=== PATIENT | female | born 1960 | race Caucasian/White ===

== ENCOUNTER 2020-09-11 16:26 | Emergency (ER) | payer BC, SELFPAY ==
[2020-09-11 16:39] VITALS: BP 139/81; PULSE 82; RESP 18; TEMP 37.4; O2SAT 98
--- NOTE | 2020-09-11 16:39 | ED.EAR ---
HPI - Ear Problem General Chief complaint: Ear Stated complaint: ear infection Time Seen by Provider: 09/11/20 16:39 Source: patient and RN notes reviewed History of Present Illness HPI Narrative: Patient is a 60-year-old female that presents the urgent care with complaints of bilateral ear pain and itchiness due to a yeast infections in the ears. Patient states that this has been an ongoing issue for approximately 10 years and her ENT recently moved and she has not been able to be seen by the other ENT until October 13. Patient states that her previous ENT did call her in a prescription of Ciprodex on 02 September, which has not improved her symptoms. Patient states that she believes she contracted the yeast infection in a swimming pool in [facility] approximately 10 years ago. Patient states that she is also been using Debrox and warm compress to the ears. Denies of any notable drainage from the ears. Denies of any fever, chills, nausea, vomiting. Denies of any other upper respiratory symptoms. No other acute complaints. No acute distress noted. Patient aware of the plan of care. Some parts of this dictation were generated by voice recognition software and may contain typographical and/or grammatical inaccuracies. Related Data Home Medications Medication Instructions Recorded Confirmed ciprofloxacin-dexamethasone 4 drp OTIC (EAR) Q12H 09/11/20 09/11/20 Allergies Allergy/AdvReac Type Severity Reaction Status Date / Time No Known Allergies Allergy Verified 09/11/20 16:41 Review of Systems Review of Systems: Narrative: CONSTITUTIONAL: Denies fever, chills, or sweats. EYES: Denies visual changes, redness, or discharge. ENT: Reports of bilateral ear pain and itchiness due to bilateral yeast infections CARDIOVASCULAR: Denies chest pain, palpitations, or edema. RESPIRATORY: Denies cough or dyspnea. GASTROINTESTINAL: Denies abdominal pain, nausea, vomiting, or diarrhea. GENITOURINARY: Denies dysuria or hematuria. SKIN: Denies rash or itching. MUSCULOSKELETAL: Denies back pain, joint pain, or myalgia. NEUROLOGIC: Denies headache, numbness, or weakness. All other systems reviewed are negative, except as documented in HPI. [facility] Family History Family History (Updated 03/16/19 @ 08:50 by DOCTOR UNKNOWN) Father Diabetes mellitus Hypertension Family history of cardiovascular disease Malignant neoplasm of prostate Family history of coronary artery disease Mother Diabetes mellitus Social History Social History Smoking status: Never smoker Second hand tobacco smoke exposure: No Alcohol intake: current Comments At the time of my signature, I reviewed and agree with the nursing past medical, surgical, social, and family history. There is no relevant family history pertinent to the patient complaint. Exam Narrative: Exam Narrative: GENERAL: This is a well-nourished, well-developed patient, in no apparent distress. HEAD: normocephalic, atraumatic. EYES: PERRL. Sclera clear/white. Vision is grossly intact. EARS: External ears normal, notable bilateral otomycosis to outer ear canals with white to yellow thick, unable to visualize bilateral ear canals due to diffuse yeast NOSE: External nose normal with no obvious nasal discharge, nares without redness, no rhinorrhea. THROAT: Mucous membranes moist NECK: Neck supple SKIN: warm, intact with no suspicious lesions or rash, good texture and turgor. NEURO: awake, alert, and oriented to person, place and time. There were no obvious focal neurologic abnormalities. EXTREMITIES: No clubbing, cyanosis, or edema. Course Vital Signs Vital signs: Vital Signs Temperature 99.3 F 09/11/20 16:39 Pulse Rate 82 09/11/20 16:39 Respiratory Rate 18 09/11/20 16:39 Blood Pressure 139/81 09/11/20 16:39 Pulse Oximetry 98 09/11/20 16:39 Temperature 99.3 F 09/11/20 16:39 Pulse Rate 82 09/11/20 16:39 Respiratory Rate 18 09/11/20 16:39 Blood Pressure 139/
== END 2020-09-11 17:33 | disposition home or self-care (01) ==
PROVIDERS: Emergency Provider Nurse Practitioner Family; PCP Family Medicine
DX: B36.9 Superficial mycosis, unspecified (principal); H62.43 Otitis externa in other diseases classified elsewhere, bilateral
CPT/HCPCS: 99213; G0463